=== PATIENT | female | born 1955 | race Caucasian/White ===

== ENCOUNTER 2019-07-03 14:13 | Emergency (ER) | payer MEDICARE ==
[~2019-07-03] VITALS: Ht 162.6 cm; Wt 94.5 kg
[~2019-07-03 14:13] MED LIST: CALTRATE 600 +1 TAB PO; COLESTIPOL1 GM PO; CORDARONE200 MG/TAB PO; COUMADIN 5MG5 MG/TAB PO; LISINOPRIL/HCTZ1 TA1 PO; NORVASC 5MG5 MG/TAB PO; OMEGA-3 FISH1000 MG; OMEGA-3 FISH1200 MG PO; PRADAXA 150MG150 MG PO; PREVACID 15MG15 M1 PO; PRINIVIL10 MG PO; ROZEREM 8MG TABL8 MG PO; ROZEREM8 MG PO; TOPROL XL 50MG50 MG PO; TYLENOL EXTRA500 M1 PO; ZESTORETIC 12.51 TA1 PO; ZESTORETIC 12.51 TAB PO
[2019-07-03 14:19] VITALS: TEMP 98.1
[2019-07-03] MEDS ORDERED: CARDIZEM 225 MG/5 ML (14:41)
[2019-07-03 15:11] LABS: BASO # 0.1 (0.0-0.2); BASO % 0.6 % (0.0-2.0); EOS # 0.1 (0.0-0.7); EOS % 0.9 % (0-4.0); GRAN # 5.2 (1.4-6.5); GRAN % 66.1 % (42.2-75.2); HEMATOCRIT 43.5 % (37.0-47.0); HEMOGLOBIN 14.3 g/dl (12.5-16.0); LYMPH # 1.8 (1.2-3.4); LYMPH % 22.4 % (20.0-51.0); MEAN CELL VOLUME 86 fl (80.0-100.0); MEAN CORPUSCULAR HEMOGLOBIN 28 pg (27.0-31.0); MEAN CORPUSCULAR HGB CONC 33 g/dl (33.0-37.0); MEAN PLATELET VOLUME 12.2 fl (7.4-10.4); MONO # 0.8 (0.1-0.6); MONO % 9.7 % (1.7-9.3); PLATELET COUNT 231 K/mm3 (130-400); RED BLOOD COUNT 5.05 M/mm3 (4.10-5.30); REDCELL DISTRIBUTION WIDTH-CV 13.3 % (11.5-14.5)
[2019-07-03 15:16] LABS: INR 2.5 (0.8-3.0); PROTHROMBIN TIME 29.5 SECONDS (9.7-12.8)
[2019-07-03 15:22] LABS: ALANINE AMINOTRANSFERASE 13 U/L (9-52); ALBUMIN 4.5 gm/dL (3.5-5.0); ALKALINE PHOSPHATASE 72 U/L (50-136); ANION GAP 8 mmol/L (7-16); AST,SGOT 19 U/L (15-37); BILIRUBIN,TOTAL 0.4 mg/dL (0.0-1.0); BLOOD UREA NITROGEN 14 mg/dL (7-17); CALCIUM 9.4 mg/dL (8.4-10.2); CARBON DIOXIDE 25 mmol/L (22-30); CHLORIDE 107 mmol/L (98-107); CREATININE, serum 1.01 (0.52-1.25); GLUCOSE 98 mg/dL (74-106); POTASSIUM 4.1 mmol/L (3.4-5.0); SODIUM 141 mmol/L (137-145)
[2019-07-03] MEDS ORDERED: NEXIUM 20MG20 MG (15:23)
[2019-07-03] MEDS ORDERED: COUMADIN 77.5 MG/TAB PO (15:24)
[2019-07-03] MEDS ORDERED: COUMADIN 77.5 MG/TAB (15:25)
[2019-07-03] MEDS ORDERED: TIKOSYN0.5 MG PO (15:26)
[2019-07-03 15:34] LABS: TROPONIN-I < 0.012 ng/mL (0.000-0.035)
[2019-07-03] MEDS ORDERED: CARDIZEM CD 18180 MG PO (16:52)
[2019-07-03 16:59] VITALS: BP 118/81; PULSE 100
== END 2019-07-03 17:10 | disposition home or self-care (01) ==
LOC: COL.ER 14:13
PROVIDERS: Emergency Medicine
DX: I48.91 Unspecified atrial fibrillation (principal); I48.92 Unspecified atrial flutter; I10 Essential (primary) hypertension; K21.9 Gastro-esophageal reflux disease without esophagitis; Z79.01 Long term (current) use of anticoagulants
CPT/HCPCS: J7030

== ENCOUNTER → 2019-12-22 | Outpatient (CLI) | payer MEDICARE ==
[~2019-12-22] MED LIST changes: +CARDIZEM 225 MG/5 ML; +CARDIZEM CD 18180 MG PO; +COUMADIN 77.5 MG/TAB; +COUMADIN 77.5 MG/TAB PO; +NEXIUM 20MG20 MG; +TIKOSYN0.5 MG PO
== END ==
LOC: MHCPAIN 09:55
DX: M54.5 Low back pain (principal); M54.16 Radiculopathy, lumbar region; G89.29 Other chronic pain; M53.3 Sacrococcygeal disorders, not elsewhere classified
CPT/HCPCS: G0463

== ENCOUNTER 2020-11-20 18:16 | Emergency (ER) | payer MEDICARE ==
[~2020-11-20] VITALS: Ht 162.6 cm; Wt 89.1 kg
[2020-11-20 18:25] VITALS: TEMP 97.7
[2020-11-20 18:31] LABS: BASO # 0.1 (0.0-0.2); BASO % 0.9 % (0.0-2.0); EOS # 0.1 (0.0-0.7); EOS % 1.7 % (0-4.0); GRAN # 3.9 (1.4-6.5); GRAN % 60.4 % (42.2-75.2); HEMATOCRIT 40.6 % (37.0-47.0); HEMOGLOBIN 13.3 g/dl (12.5-16.0); LYMPH # 1.6 (1.2-3.4); LYMPH % 25.1 % (20.0-51.0); MEAN CELL VOLUME 86 fl (80.0-100.0); MEAN CORPUSCULAR HEMOGLOBIN 28 pg (27.0-31.0); MEAN CORPUSCULAR HGB CONC 33 g/dl (33.0-37.0); MEAN PLATELET VOLUME 12.1 fl (7.4-10.4); MONO # 0.8 (0.1-0.6); MONO % 11.6 % (1.7-9.3); PLATELET COUNT 246 K/mm3 (130-400); RED BLOOD COUNT 4.74 M/mm3 (4.10-5.30); REDCELL DISTRIBUTION WIDTH-CV 13.2 % (11.5-14.5)
[2020-11-20 18:36] LABS: ALBUMIN 4.3 gm/dL (3.5-5.0); BILIRUBIN,TOTAL 0.3 mg/dL (0.0-1.0); CREATININE, serum 0.79 (0.52-1.25); MAGNESIUM 2.3 mg/dL (1.6-2.3); POTASSIUM 3.8 mmol/L (3.4-5.0); TOTAL PROTEIN 8.1 gm/dL (6.4-8.2)
[2020-11-20 18:48] LABS: TROPONIN-I 0.026 ng/mL (0.000-0.035)
[2020-11-20 18:49] LABS: INR 1.7 (0.8-3.0)
[2020-11-20 19:23] VITALS: BP 117/94; PULSE 101
== END 2020-11-20 19:23 | disposition home or self-care (01) ==
LOC: COL.ER 18:16
PROVIDERS: Nurse Practitioner
DX: I48.91 Unspecified atrial fibrillation (principal); Z88.1 Allergy status to other antibiotic agents; Z88.5 Allergy status to narcotic agent; Z79.01 Long term (current) use of anticoagulants
CPT/HCPCS: J1650

== ENCOUNTER 2022-10-15 21:46 | Emergency (ER) | payer MEDICARE ==
[~2022-10-15] VITALS: Ht 160 cm; Wt 86.4 kg
[~2022-10-15 21:46] MED LIST changes: +CARDIZEM 30MG T30 MG PO; +CARDIZEM CD 24240 MG PO; -COUMADIN 77.5 MG/TAB
[2022-10-15 21:50] VITALS: TEMP 97.6
[2022-10-15 22:06] LABS: BASO # 0.1 K/mm3 (0.0-0.2); BASO % 0.8 % (0.0-2.0); EOS # 0.2 K/mm3 (0.0-0.7); EOS % 2.2 % (0.0-4.0); GRAN # 3.7 K/mm3 (1.4-6.5); GRAN % 47.8 % (42.2-75.2); HEMATOCRIT 41.6 % (37.0-47.0); HEMOGLOBIN 13.6 g/dl (12.5-16.0); LYMPH # 2.9 K/mm3 (1.2-3.4); LYMPH % 37.5 % (20.0-51.0); MEAN CELL VOLUME 85 fl (80.0-100.0); MEAN CORPUSCULAR HEMOGLOBIN 28 pg (27-31); MEAN CORPUSCULAR HGB CONC 33 g/dl (33.0-37.0); MEAN PLATELET VOLUME 12.3 fl (7.4-10.4); MONO # 0.9 K/mm3 (0.1-0.6); MONO % 11.4 % (1.7-9.3); PLATELET COUNT 234 K/mm3 (130-400); RED BLOOD COUNT 4.89 M/mm3 (4.10-5.30); REDCELL DISTRIBUTION WIDTH-CV 13.5 % (11.5-14.5)
[2022-10-15 22:26] LABS: ALANINE AMINOTRANSFERASE 22 U/L (0-55); ALBUMIN 4.2 gm/dL (3.4-4.8); ALKALINE PHOSPHATASE 48 U/L (40-150); ANION GAP 11 mmol/L (7-16); AST,SGOT 19 U/L (5-34); BILIRUBIN,TOTAL 0.6 mg/dL (0.2-1.2); BLOOD UREA NITROGEN 14 mg/dL (10-20); CALCIUM 9.9 mg/dL (8.4-10.2); CARBON DIOXIDE 22 mmol/L (23-31); CHLORIDE 105 mmol/L (98-107); CREATININE, serum 0.89 mg/dL (0.57-1.11); GLUCOSE 103 mg/dL (70-99); POTASSIUM 3.8 mmol/L (3.5-4.5); SODIUM 138 mmol/L (136-145); TOTAL PROTEIN 8.2 gm/dL (6.2-8.1)
[2022-10-15 22:27] LABS: INR 2.4 (0.8-3.0); PROTHROMBIN TIME 27.8 SECONDS (9.7-12.8)
[2022-10-15 22:38] LABS: TROPONIN-I < 0.010 ng/mL (0.00-0.033)
[2022-10-16 00:23] VITALS: BP 160/72; PULSE 60
== END 2022-10-16 00:36 | disposition home or self-care (01) ==
LOC: COL.ER 21:46
PROVIDERS: Personal Emergency Response Attendant
DX: R07.2 Precordial pain (principal); Z86.79 Personal history of other diseases of the circulatory system